=== PATIENT | male | born 2000 | race African-American/Black ===

== ENCOUNTER → 2021-04-18 | Outpatient (CLI) | payer OTHER | END | disposition home or self-care (01) | LOC: RAD 10:10 | PROVIDERS: ATTEND Chiropractor | DX: M41.86 Other forms of scoliosis, lumbar region (principal); M54.50 Low back pain, unspecified; Q76.1 Klippel-Feil syndrome; M54.2 Cervicalgia; G95.29 Other cord compression ==

== ENCOUNTER 2021-10-24 22:20 | Emergency (ER) | payer SELFPAY | END 2021-10-24 23:11 | disposition left against medical advice (07) | LOC: ED 22:20 | DX: Z00.8 Encounter for other general examination (principal); Z53.21 Procedure and treatment not carried out due to patient leaving prior to being seen by health care provider ==

== ENCOUNTER 2021-10-29 17:50 | Emergency (ER) | payer OTHER ==
[~2021-10-29] VITALS: Ht 182.8 cm; Wt 81.6 kg
[2021-10-29] MEDS ORDERED: SEPTDS PO (18:26)
[2021-10-29] MEDS ORDERED: CEPHALEXIN500 M1 PO (18:26)
== END 2021-10-29 18:34 | disposition home or self-care (01) ==
LOC: ED 17:50
DX: N48.21 Abscess of corpus cavernosum and penis (principal); F17.200 Nicotine dependence, unspecified, uncomplicated

== ENCOUNTER 2022-09-21 20:46 | Emergency (ER) | payer SELFPAY ==
[~2022-09-21] VITALS: Wt 93.0 kg
[~2022-09-21 20:46] MED LIST: CEPHALEXIN500 M1 PO; SEPTDS PO
[2022-09-21] MEDS ORDERED: NAPROXEN250 MG PO (21:37)
== END 2022-09-21 21:49 | disposition home or self-care (01) ==
LOC: ED 20:46
DX: S46.912A Strain of unspecified muscle, fascia and tendon at shoulder and upper arm level, left arm, initial encounter (principal); X50.0XXA Overexertion from strenuous movement or load, initial encounter; Y93.89 Activity, other specified; Y92.89 Other specified places as the place of occurrence of the external cause; Y99.8 Other external cause status

== ENCOUNTER 2023-08-01 19:19 | Emergency (ER) | payer SELFPAY ==
[~2023-08-01] VITALS: Ht 180.3 cm; Wt 79.4 kg
[~2023-08-01 19:19] MED LIST changes: +NAPROXEN250 MG PO
[2023-08-01] MEDS ORDERED: Lidocaine Hydrochloride 2% 10 ML AMP SC ONE (19:40)
[2023-08-01] MEDS ORDERED: Tdap Vaccine 0.5 ML SYR (Adult Vaccine) IM ONE (19:40)
[2023-08-01] MEDS ORDERED: CEPHALEXIN500 M1 PO (19:53)
== END 2023-08-01 20:24 | disposition home or self-care (01) ==
LOC: ED 19:19
DX: S60.450A Superficial foreign body of right index finger, initial encounter (principal); X58.XXXA Exposure to other specified factors, initial encounter; Y93.89 Activity, other specified; Y92.89 Other specified places as the place of occurrence of the external cause; Y99.8 Other external cause status

== ENCOUNTER 2024-06-19 22:46 | Emergency (ER) | payer OTHER ==
[~2024-06-19] VITALS: Ht 180.3 cm; Wt 97.5 kg
[2024-06-20] MEDS ORDERED: MELOXICAM15 MG PO (00:43)
[2024-06-20] MEDS ORDERED: Meloxicam 15 MG TAB PO ONE (00:45)
== END 2024-06-20 00:56 | disposition home or self-care (01) ==
LOC: ED 22:46
DX: S60.222A Contusion of left hand, initial encounter (principal); F17.200 Nicotine dependence, unspecified, uncomplicated; W18.39XA Other fall on same level, initial encounter; Y93.89 Activity, other specified; Y92.89 Other specified places as the place of occurrence of the external cause; Y99.8 Other external cause status